=== PATIENT | female | born 1990 | race Caucasian/White ===

== ENCOUNTER 2017-04-27 08:20 | Day surgery (SDC) | payer BC ==
[2017-04-23 14:04] LABS: Basophils # (auto) 0 uL; Basophils % (auto) 0.4 % (0.0-2.0); Eosinophils # (auto) 0.1 uL; Eosinophils % (auto) 1.3 % (0.0-7.0); Hematocrit 43.8 % (36.0-46.0); Hemoglobin 14.7 g/dL (12.2-16.2); Lymphocytes # (auto) 1.7 uL; Lymphocytes % (auto) 32.3 % (10.0-50.0); Mean Corpuscular Hemoglobin 30.5 pg (28.0-32.0); Mean Corpuscular Hgb Conc. 33.6 g/dL (32.0-36.0); Mean Corpuscular Volume 90.8 fL (80.0-100.0); Monocytes # (auto) 0.3 uL; Monocytes % (auto) 5.9 % (0.0-12.0); Neutrophils # (auto) 3.1 uL; Neutrophils % (auto) 60.1 % (37.0-80.0); Nucleated Red Blood Cells % 0.1 %; Platelet Count (auto) 228 10^3/uL (140-450); Red Blood Cells 4.82 10^6/uL (4.0-5.20); Red Cell Distribution Width 12.8 % (11.8-14.3); White Blood Cell 5.2 10^3/uL (4.4-10.8)
[2017-04-23 14:13] LABS: Urine Amorphous Crystal MOD /hpf (None Seen); Urine Bacteria NONE SEEN /hpf (None Seen); Urine Blood Negative /uL (Negative); Urine Budding Yeast OCCASIONAL /hpf (None Seen); Urine Specific Gravity 1.022 (1.001-1.035); Urine WBC 9 /hpf (0 - 5)
[2017-04-23 14:18] LABS: INR 1.04 (0.9-1.15); Partial Thromboplastin Time 27.3 sec (22.64-33.71); Prothrombin Time 11.3 sec (9.37-12.3)
[2017-04-23 14:25] LABS: Calcium 9.1 mg/dL (8.5-10.1); Potassium 3.7 mmol/L (3.5-5.1)
[2017-04-23 14:28] LABS: Bilirubin, Total 0.4 mg/dL (0.2-1.0); Total Protein 7.4 g/dL (6.4-8.2)
[~2017-04-27] VITALS: Ht 167.6 cm; Wt 60.3 kg
[2017-04-27] MEDS ORDERED: SODIUM CHLORIDE LOCK 10 ML ONE (08:36)
[2017-04-27] MEDS ORDERED: ONDANSETRON HCL 4 MG/2 ML VIAL ONE (08:36)
[2017-04-27] MEDS ORDERED: MEPERIDINE HCL (50 MG/ML) 1 ML VIAL ONE (08:36)
[2017-04-27] MEDS ORDERED: MIDAZOLAM HCL 1MG/1ML-2 ML VIAL ONE (08:36)
[2017-04-27] MEDS ORDERED: fentaNYL CITRATE 100 MCG/2 ML VL ONE (08:36)
[2017-04-27] MEDS ORDERED: PROPOFOL 10 MG/ML 20 ML IV ONE (08:36)
[2017-04-27] MEDS ORDERED: CLINDAMYCIN 600MG IV 50 ML IV ONE (08:54)
[2017-04-27] MEDS ORDERED: methylPREDNISolone ACETATE 80 MG/ML VL ONE ×2 (09:32→10:16)
[2017-04-27] MEDS ORDERED: BACITRACIN INJ 50000 UNIT VIAL ONE (09:32)
[2017-04-27] MEDS ORDERED: HYDROmorphone HCL 2 MG/ML VL IV PRN (10:00)
[2017-04-27] MEDS ORDERED: KETOROLAC TROMETH 30 MG/ML 1ML VIAL IV ONE (10:00)
[2017-04-27] MEDS ORDERED: METOCLOPRAMIDE HCL 5MG/ml INJ 2ml VIAL IV ONE (10:00)
[2017-04-27 12:20] VITALS: BP 133/83
== END 2017-04-27 12:20 | disposition home or self-care (01) ==
LOC: SUR 08:20
PROVIDERS: ATTEND Orthopaedic Surgery
DX: M23.92 Unspecified internal derangement of left knee (principal); M23.42 Loose body in knee, left knee; S83.242A Other tear of medial meniscus, current injury, left knee, initial encounter; X58.XXXA Exposure to other specified factors, initial encounter; Y93.9 Activity, unspecified; Y92.9 Unspecified place or not applicable; Y99.9 Unspecified external cause status; S83.92XA Sprain of unspecified site of left knee, initial encounter; S83.512A Sprain of anterior cruciate ligament of left knee, initial encounter; Z88.0 Allergy status to penicillin; E66.9 Obesity, unspecified; Z68.21 Body mass index [BMI] 21.0-21.9, adult; D69.6 Thrombocytopenia, unspecified
CPT/HCPCS: 29881; 36415; 80053; 81001; 84702; 85025; 85610; 85730; J1040; J1885; J2175; J2250; J2405; J2704; J3010; J3490